=== PATIENT | female | born 1995 | race African-American/Black ===

== ENCOUNTER 2018-01-10 22:01 | Emergency (ER) | payer OTHER ==
[~2018-01-10] VITALS: Ht 160 cm; Wt 53.5 kg
[~2018-01-10 22:01] MED LIST: AZITHROMYCIN 2250 MG PO; BCP; KEFLEX500 MG PO; NAPROSYN500 MG PO; NORCO 5-325 TA1 EACH PO; PRENATAL TABLE1 EAC3 PO
== END 2018-01-10 22:59 | disposition home or self-care (01) ==
LOC: ER 22:01
DX: J02.8 Acute pharyngitis due to other specified organisms (principal); B97.89 Other viral agents as the cause of diseases classified elsewhere; Z90.89 Acquired absence of other organs

== ENCOUNTER 2018-06-09 11:01 | Emergency (ER) | payer OTHER ==
[~2018-06-09] VITALS: Ht 160 cm; Wt 53.1 kg
[2018-06-09] MEDS ORDERED: NORCO 5-325 TA1 EACH PO (12:31)
[2018-06-09] MEDS ORDERED: ONDANSETRON HCL4 M2 PO (12:31)
[2018-06-09 12:45] VITALS: BP 105/72
== END 2018-06-09 18:37 | disposition home or self-care (01) ==
LOC: ER 11:01
DX: S02.2XXA Fracture of nasal bones, initial encounter for closed fracture (principal); S63.682A Other sprain of left thumb, initial encounter; Z90.49 Acquired absence of other specified parts of digestive tract; Y04.2XXA Assault by strike against or bumped into by another person, initial encounter; Y92.89 Other specified places as the place of occurrence of the external cause; Y93.89 Activity, other specified; Y99.8 Other external cause status

== ENCOUNTER 2018-07-04 17:53 | Emergency (ER) | payer OTHER ==
[~2018-07-04] VITALS: Ht 160 cm; Wt 53.5 kg
[~2018-07-04 17:53] MED LIST changes: +ONDANSETRON HCL4 M2 PO
[2018-07-04 18:41] LABS: URINE BILIRUBIN NEGATIVE (Negative); URINE BLOOD NEGATIVE (Negative); URINE CLARITY CLEAR; URINE COLOR YELLOW; URINE GLUCOSE-RANDOM* NEGATIVE (Negative); URINE KETONES NEGATIVE (Negative); URINE LEUKOCYTES-REFLEX NEGATIVE (Negative); URINE NITRITE-REFLEX NEGATIVE (Negative); URINE PROTEIN (DIPSTICK) NEGATIVE (Negative); URINE SPECIFIC GRAVITY <= 1.005 (1.005-1.035); URINE UROBILINOGEN 0.2 E.U./dl (0.2-1.0)
[2018-07-04 18:43] LABS: BASOPHILS 0.5 % (0.0-2.0); EOSINOPHILS 1.7 % (0.0-3.0); HEMATOCRIT 37.6 % (37.0-47.0); HEMOGLOBIN 12.6 gm/dL (12.0-15.0); MCH 28.4 pg (26.0-34.0); MCHC 33.5 g/dL (28.0-37.0); MCV 84.6 fL (80.0-100.0); MONOCYTES 6.7 % (1.0-8.0); PLATELET COUNT 343 thou/uL (150-400); POLYS 54.1 % (36.0-66.0); RBC 4.45 mil/uL (4.20-5.00); RDW 14.1 % (10.5-14.5); WBC 5.5 thou/uL (4.0-11.0)
[2018-07-04 18:50] LABS: CALCIUM 9.5 mg/dL (8.5-10.1); CREATININE 0.7 mg/dL (0.6-1.0); POTASSIUM 3.1 mmol/L (3.5-5.1)
[2018-07-04] MEDS ORDERED: VITAFOL-OB+DHA1 EACH PO (20:11)
[2018-07-04 20:22] VITALS: BP 96/67
[2018-07-05] MEDS ORDERED: TRAMADOL 50 MG50 MG PO (14:03)
[2018-07-05] MEDS ORDERED: NAPROSYN500 MG PO (14:03)
== END 2018-07-04 20:15 | disposition home or self-care (01) ==
LOC: ER 17:53
PROVIDERS: Physician Assistant
DX: O20.0 Threatened abortion (principal); Z90.49 Acquired absence of other specified parts of digestive tract; Z3A.01 Less than 8 weeks gestation of pregnancy

== ENCOUNTER 2018-07-05 12:49 | Emergency (ER) | payer OTHER ==
[~2018-07-05] VITALS: Ht 160 cm; Wt 53.5 kg
[~2018-07-05 12:49] MED LIST changes: +VITAFOL-OB+DHA1 EACH PO
[2018-07-05 13:13] LABS: HEMATOCRIT 35.6 % (37.0-47.0); MCH 28.7 pg (26.0-34.0); MCHC 33.8 g/dL (28.0-37.0); RBC 4.18 mil/uL (4.20-5.00); RDW 13.8 % (10.5-14.5); WBC 5.3 thou/uL (4.0-11.0)
[2018-07-05] MEDS ORDERED: TRAMADOL 50 MG50 MG PO (14:03)
[2018-07-05] MEDS ORDERED: NAPROSYN500 MG PO (14:03)
[2018-07-05 16:09] VITALS: BP 101/62
== END 2018-07-05 16:00 | disposition home or self-care (01) ==
LOC: ER 12:49
PROVIDERS: Emergency Medicine
DX: O03.9 Complete or unspecified spontaneous abortion without complication (principal); Z3A.01 Less than 8 weeks gestation of pregnancy; Z90.49 Acquired absence of other specified parts of digestive tract

== ENCOUNTER 2020-05-17 18:35 | Emergency (ER) | payer OTHER ==
[~2020-05-17] VITALS: Ht 160 cm; Wt 55.3 kg
[~2020-05-17 18:35] MED LIST changes: +TRAMADOL 50 MG50 MG PO
[2020-05-17 19:02] LABS: URINE BILIRUBIN NEGATIVE (Negative); URINE BLOOD 1+ (Negative); URINE COLOR YELLOW; URINE GLUCOSE-RANDOM* NEGATIVE (Negative); URINE KETONES TRACE (Negative); URINE PROTEIN (DIPSTICK) NEGATIVE (Negative); URINE SPECIFIC GRAVITY >= 1.030 (1.005-1.035)
[2020-05-17 19:05] LABS: URINE LEUKOCYTES-REFLEX 2+ (Negative); URINE NITRITE-REFLEX POSITIVE (Negative)
[2020-05-17 19:06] LABS: URINE CLARITY SL HAZY
[2020-05-17 19:08] LABS: SQUAMOUS 0-3 Few /LPF (0-3)
[2020-05-17 19:09] LABS: BACTERIA-REFLEX 1-9 Few /HPF (None Seen); CASTS None Seen /LPF (None Seen); CRYSTALS None Seen /LPF (None Seen); URINE RBC 0-2 Rare /HPF (0-2); URINE WBC-REFLEX 6-15 Few /HPF (0-5)
[2020-05-17 19:29] LABS: ABSOLUTE NEUTROPHILS 3.7 thou/uL (1.4-8.2); BASOPHILS 0.6 % (0.0-2.0); EOSINOPHILS 1.2 % (0.0-3.0); HEMATOCRIT 36.5 % (37.0-47.0); HEMOGLOBIN 12.3 gm/dL (12.0-15.0); LYMPHOCYTES 34.4 % (24.0-44.0); MCH 29.2 pg (26.0-34.0); MCHC 33.7 g/dL (28.0-37.0); MCV 86.8 fL (80.0-100.0); PLATELET COUNT 374 thou/uL (150-400); POLYS 55.8 % (36.0-66.0); RBC 4.21 mil/uL (4.20-5.00); RDW 13.2 % (10.5-14.5); WBC 6.6 thou/uL (4.0-11.0)
[2020-05-17 19:36] LABS: CALCIUM 9.5 mg/dL (8.5-10.1); CREATININE 0.8 mg/dL (0.6-1.0); POTASSIUM 3.3 mmol/L (3.5-5.1)
[2020-05-17] MEDS ORDERED: KEFLEX500 M1 PO (20:34)
[2020-05-17 20:39] VITALS: BP 95/65
== END 2020-05-17 20:44 | disposition home or self-care (01) ==
LOC: ER 18:35
PROVIDERS: Physician Assistant
DX: O23.41 Unspecified infection of urinary tract in pregnancy, first trimester (principal); Z90.49 Acquired absence of other specified parts of digestive tract; Z3A.01 Less than 8 weeks gestation of pregnancy